=== PATIENT | male | born 1965 | race Caucasian/White ===

== ENCOUNTER → 2016-07-30 | Outpatient (CLI) | payer OTHER ==
[~2016-07-30] MED LIST: ASPI81TA28 PO; HYDR-3785 PO; LSN20 PO; METF1000 PO; OXAP600T PO; PANT1TAB48 PO; PREG1CAP28 PO; ROPI1TAB PO; SAXA1TAB64 PO; TRC145 PO
[2016-07-30 14:45] LABS: ESTIMATED AVERAGE GLUCOSE 255 mg/dl; HA1C FLAG Normal (Normal)
[2016-07-30 14:55] LABS: BLOOD UREA NITROGEN 12 mg/dl (7-18); BUN/CREATININE RATIO 12.8 (10-20); CALCIUM 8.8 mg/dl (8.5-10.1); CARBON DIOXIDE 30 mmol/L (21-32); CHLORIDE 101 mmol/L (98-107); GLUCOSE 275 mg/dl (70-99); POTASSIUM 3.9 mmol/L (3.5-5.1); SODIUM 139 mmol/L (136-145)
[2016-07-30 16:20] LABS: RATIO 248.5 mcg/mg (0-30.0)
== END | disposition home or self-care (01) ==
LOC: C.LAB1850 13:30
PROVIDERS: ATTEND Nurse Practitioner Family
DX: E11.65 Type 2 diabetes mellitus with hyperglycemia (principal)

== ENCOUNTER → 2017-01-28 | Outpatient (CLI) | payer OTHER ==
[2017-01-29 08:13] LABS: ESTIMATED AVERAGE GLUCOSE 237 mg/dl; HA1C FLAG Normal (Normal)
== END | disposition home or self-care (01) ==
LOC: C.LAB1850 15:54
PROVIDERS: ATTEND Nurse Practitioner Family
DX: E11.65 Type 2 diabetes mellitus with hyperglycemia (principal)

== ENCOUNTER → 2017-05-30 | Outpatient (CLI) | payer OTHER ==
[~2017-05-30] MED LIST changes: +PANT1TAB3 PO; -PANT1TAB48 PO
[2017-05-30 17:05] LABS: BLOOD UREA NITROGEN 11 mg/dl (7-18); CALCIUM 9.1 mg/dl (8.5-10.1); CARBON DIOXIDE 31 mmol/L (21-32); GLUCOSE 257 mg/dl (70-99); POTASSIUM 3.8 mmol/L (3.5-5.1); SODIUM 134 mmol/L (136-145)
[2017-05-30 18:11] LABS: HEMOGLOBIN A1C 11.6 % (4.5-5.6)
== END | disposition home or self-care (01) ==
LOC: C.LAB1850 15:36
PROVIDERS: ATTEND Nurse Practitioner Family
DX: E11.21 Type 2 diabetes mellitus with diabetic nephropathy (principal)

== ENCOUNTER 2017-07-10 22:10 | Emergency (ER) | payer OTHER ==
[~2017-07-10] VITALS: Ht 188 cm; Wt 102.0 kg
[2017-07-10 22:13] VITALS: TEMP 36.6; Ht 188 cm; Wt 102.0 kg
[2017-07-10] MEDS ORDERED: KETOROLAC TROMETHAMINE 60 MG/2 ML VIAL IM STA (22:50)
[2017-07-10] MEDS ORDERED: HYDROCODONE/ACETAMIN 5/325MG TAB PO ONE (23:00)
[2017-07-10] MEDS ORDERED: HYDR-3126 PO (23:16)
[2017-07-10] MEDS ORDERED: DULO60CA44 PO (23:17)
[2017-07-10] MEDS ORDERED: PREG100C PO (23:17)
[2017-07-10] MEDS ORDERED: INSU100I23 SQ (23:18)
[2017-07-11] MEDS ORDERED: NORCO 5/325MG HOME PACK PO ONE (00:30)
[2017-07-11 00:45] VITALS: BP 118/83; PULSE 92; O2SAT 93
--- NOTE | 2017-07-11 06:07 | EMERGENCY ROOM VISIT NOTE ---
ED Visit Note First contact with patient: 22:42 CHIEF COMPLAINT: Low back pain HISTORY OF PRESENT ILLNESS: This 51-year-old male patient presents to the emergency department complaining of pain in the low back which began worsening today. The patient does not report distinct injury or trauma. He has had some low back pain in the past. He states that he did moves snow yesterday which may have aggravated his back. The pain was gradual in onset, is now constant and worse with movement. The patient notes the pain as sharp and a 8/10. The patient has taken nothing for relief of the pain. The patient denies any loss of control of their bowel or bladder functions. There has been no leg numbness or weakness, and no change in sensation. No nausea or vomiting or abdominal pain. No chest pain or shortness of breath. No dysuria or increased urinary frequency. REVIEW OF SYSTEMS: A review of systems was performed with positives and pertinent negatives listed in the history of present illness. All other systems were reviewed and are negative. ALLERGIES: No known allergies MEDICATIONS: No chronic medications PMH: Otherwise healthy SOCIAL HISTORY: Lives in [place] PHYSICAL EXAM: VITALS: Vitals are noted on the nurse's note and reviewed by myself. Vital signs stable. GENERAL: White male, in no acute distress, nondiaphoretic, well-developed well- nourished. SKIN: The skin was without rashes, erythema, edema, or bruising. Capillary refill less than 2 seconds. NECK: Supple without nuchal rigidity. No cervical spine tenderness. No paraspinous muscle tenderness. HEART: Regular rate and rhythm without murmurs gallops or rubs. LUNGS: Clear to auscultation bilaterally without wheezes, rales or rhonchi. ABDOMEN: Positive bowel sounds x 4. Normal tympanic percussion. Soft, nontender, without masses or organomegaly. Mason sign negative. MUSCULOSKELETAL: No muscle atrophy, erythema, or edema noted of the back. There is positive tenderness over the lower lumbar spinous processes. There is no tenderness over the paraspinous muscles. There is no tenderness over the thoracic spine or paraspinous muscles. There are no muscle spasms present. The patient is slow to move around with maximum tenderness with flexion. Positive straight leg raise test. NEURO: Patient was alert and oriented to person place and time. Normal sensation to light and sharp touch. Deep tendon reflexes 2+ in the lower extremities. Dorsalis pedis pulse 2+ bilaterally. Strength 5/5 and equal in the bilateral lower extremities. EMERGENCY DEPARTMENT COURSE: Physical exam and history were performed. Nursing notes and EMR were reviewed. The patient appears to have low back pain for the past one day. This is likely exacerbated from physical activity yesterday. He does not have significant neurologic deficit or signs of cauda equina. X-rays were performed and did not show obvious process per my interpretation with official radiology reading pending. I did provide the patient IM Toradol and a dose of Vicodin by mouth here in the department. This did result in significant improvement of the patient's discomfort. I will give him a home pack of Vicodin and other conservative instructions. He is to follow with his primary care physician this week for recheck. He was otherwise invited back to the ER with any new, worsening, or concerning symptoms. Problem List Medical Problems: (1) Diabetes Status: Chronic Current/Historical Medications Scheduled Aspirin (Aspirin Ec), 81 MG PO DAILY Duloxetine Hcl (Cymbalta), 60 MG PO DAILY Fenofibrate (Fenofibrate), 145 MG PO DAILY Insulin Glargine (Basaglar Kwikpen), 45 UNITS SQ HS Lisinopril (Lisinopril), 20 MG PO DAILY Metformin Hcl (Glucophage), 1,000 MG PO BID Oxaprozin (Daypro), 1 TAB PO BID Pantoprazole (Protonix), 40 MG PO DAILY Pregabalin (Lyrica), 75 MG PO BID Pregabalin (Lyrica), 1 CAP PO TID Scheduled PRN Hydroxyzine Hcl (Atarax), 100 MG PO BID PRN for Anxiety Allergies Coded Allergies: No Known Allergies (Unverified , 07/10/17) Vital Signs Date Time Temp Pulse Resp B/P (MAP) Pulse Ox O2 Delivery O2 Flow Rate FiO2 07/11/17 00:45 92 20 118/83 93 07/10/17 22:13 36.6 90 20 121/73 96 Room Air Medications Administered Medications (Trade) Dose Ordered Sig/Gab Route Start Time Stop Time Status Last Admin Dose Admin Ketorolac Tromethamine (Toradol Inj) 60 mg NOW STAT IM 07/10/17 22:50 07/10/17 22:51 DC 07/10/17 22:57 60 MG Acetaminophen/ Hydrocodone Bitart (Freedom 5/325 Tab) 1 tab NOW ONCE PO 07/10/17 23:00 07/10/17 23:01 DC 07/10/17 22:59 1 TAB Acetaminophen/ Hydrocodone Bitart (Freedom 5/325mg Home Pack) 1 homepack UD ONCE PO 07/11/17 00:30 07/11/17 00:31 DC 07/11/17 00:42 1 HOMEPACK Departure Information Impression Primary Impression: Low back pain with sciatica Dispostion Home / Self-Care Condition GOOD Forms HOME CARE DOCUMENTATION FORM, IMPORTANT VISIT INFORMATION Patient Instructions My [facility] Additional Instructions You were seen and evaluated today on an emergency basis only. This is not a substitute for, or an effort to provide, complete comprehensive medical care. It is not possible to recognize and treat all injuries or illnesses in a single emergency department visit. For this reason it is recommended that you followup with your primary care physician this week for ongoing care and evaluation. For baseline pain relief you may alternate ibuprofen and acetaminophen every 4 hours for pain control. Take 600 mg ibuprofen (Advil) and then 4 hours later take 1000 mg acetaminophen (Tylenol). Do not take more than 3000 mg acetaminophen in a single day. Freedom (hydrocodone/acetaminophen) 5/325 mg (homepack) every 6 hours as needed for worsening breakthrough pain. Do not drink or drive on Freedom. This medication will likely make you tired. Do not take Freedom and Tylenol at the same time as both contain acetaminophen. Freedom may cause constipation. You may wish to take an [id number] stool softener like Colace if this occurs. You are welcome to return to the emergency department anytime with new, worsening, or concerning symptoms.
--- NOTE | 2017-07-11 07:25 | DIAGNOSTIC IMAGING REPORT ---
L-SPINE MIN 4 VIEWS ROUTINE CLINICAL HISTORY: low back pain COMPARISON STUDY: 06/03/2014 FINDINGS: No acute fractures or dislocations are visualized. There are moderate multilevel degenerative changes most pronounced at the L4-5 and L5-S1 level. There is also a persistent disc osteophyte complex at the L2-3 level. There is an old mild wedge deformity of the L1 vertebral body IMPRESSION: Moderate multilevel degenerative change. No acute fractures or traumatic subluxations are visualized Electronically signed by: Jose Kulkarni M.D. 07/11/2017 7:23 AM Dictated Date/Time: 07/11/2017 7:21 AM
== END 2017-07-11 00:46 | disposition home or self-care (01) ==
LOC: C.EDB 22:11 → C.EDA 07-11 00:46
DX: M54.40 Lumbago with sciatica, unspecified side (principal); E11.9 Type 2 diabetes mellitus without complications; Z79.4 Long term (current) use of insulin; Z79.82 Long term (current) use of aspirin; Z79.84 Long term (current) use of oral hypoglycemic drugs

== ENCOUNTER → 2017-12-08 | Outpatient (CLI) | payer OTHER ==
[~2017-12-08] MED LIST changes: +DULO60CA44 PO; +HYDR-3126 PO; -HYDR-3785 PO; +INSU100I23 SQ; +LISI-726 PO; -LSN20 PO; +PREG100C PO; -ROPI1TAB PO; -SAXA1TAB64 PO
[2017-12-09 06:40] LABS: HEMOGLOBIN A1C 13.1 % (4.5-5.6)
== END | disposition home or self-care (01) ==
LOC: C.LAB1850 14:30
PROVIDERS: ATTEND Nurse Practitioner Family
DX: E11.65 Type 2 diabetes mellitus with hyperglycemia (principal)